=== PATIENT | female | born 1990 | race American Indian/Alaskan Native ===

== ENCOUNTER 2016-12-18 19:35 | Outpatient (CLI) | payer MEDICAID ==
[2016-12-18 20:40] VITALS: BP 104/62
[2016-12-18] MEDS ORDERED: LACTATED RINGERS 1,000 ML IV ONE (21:40)
[2016-12-18 22:01] LABS: Bilirubin,Urine NEG (Negative); Blood,Urine LG (Negative); Ketones,Urine TR mg/dL (Negative); Leukocyte Esterase,Urine NEG (Negative); Mucus,Urine 1+ /HPF; Nitrite,Urine NEG (Negative); Protein,Urine <15 mg/dL mg/dL (Negative)
[2016-12-18 22:03] LABS: RBC,Urine > 182.0 /HPF (0.0-6.0)
[2016-12-18] MEDS ORDERED: VISTARIL PO ONE (22:36)
== END 2016-12-18 23:16 | disposition home or self-care (01) ==
LOC: TRG 19:35
PROVIDERS: ATTEND Obstetrics & Gynecology
DX: O26.893 Other specified pregnancy related conditions, third trimester (principal); R10.9 Unspecified abdominal pain; M54.9 Dorsalgia, unspecified; Z3A.35 35 weeks gestation of pregnancy
CPT/HCPCS: 81001; 96360; J7120; Q0177